=== PATIENT | female | born 1950 | race Caucasian/White ===

== ENCOUNTER 2021-04-20 08:46 | Day surgery (SDC) | payer MEDICARE, BC ==
[2021-04-15 15:39] LABS: BASOPHILS % (AUTO) 0.4 % (0-1); EOSINOPHILS % (AUTO) 0.1 % (0-6); HEMATOCRIT 30.9 % (35.0-45.0); HEMOGLOBIN 10.7 g/dl (12.0-16.0); LYMPHOCYTES # (AUTO) 0.8 X10'3 (1.1-4.8); LYMPHOCYTES % (AUTO) 17.3 % (21-51); MEAN CORPUSCULAR HEMOGLOBIN 38.3 PG (27.0-31.0); MEAN CORPUSCULAR HGB CONC 34.7 g/dL (33.0-36.5); MEAN CORPUSCULAR VOLUME 110.5 FL (78-98); MEAN PLATELET VOLUME 7.6 FL (7.4-10.4); MONOCYTES # (AUTO) 0.4 X10'3 (0-0.9); NEUTROPHILS # (AUTO) 3.2 X10'3 (1.8-7.7); NEUTROPHILS % (AUTO) 72.2 % (42-75); PLATELET COUNT 59 X10'3 (140-440); RED CELL DISTRIBUTION WIDTH 15.9 % (11.5-14.5); WHITE BLOOD COUNT 4.4 X10'3 (4.5-11.0)
[2021-04-15 15:52] LABS: PARTIAL THROMBOPLASTIN TIME 23 SECONDS (22-32)
[2021-04-15 15:59] LABS: ALANINE AMINOTRANSFERASE 30 U/L (12-78); ALBUMIN 4.6 G/DL (3.4-5.0); ALBUMIN/GLOBULIN RATIO 1.8 (1.1-1.5); ALKALINE PHOSPHATASE 84 IU/L (46-116); ANION GAP 7 (8-16); ASPARTATE AMINO TRANSFERASE 20 U/L (10-37); BILIRUBIN,TOTAL 0.8 MG/DL (0.1-1.0); BLOOD UREA NITROGEN 12 MG/DL (7-18); CALCIUM 9.1 MG/DL (8.5-10.1); CHLORIDE 105 MMOL/L (99-107); CREATININE 0.75 MG/DL (0.40-0.90); GLUCOSE 95 MG/DL (70-104); POTASSIUM 3.8 MMOL/L (3.5-5.1); SODIUM 143 MMOL/L (135-145); TOTAL CARBON DIOXIDE 31.5 MMOL/L (24-32); TOTAL PROTEIN 7.1 G/DL (6.4-8.2); eGFR 76 ML/MIN
[2021-04-15 16:10] LABS: ANISOCYTOSIS 1+; ELLIPTOCYTES 1+; PLATELET ESTIMATE DECREASED; POLYCHROMASIA 1+
[2021-04-15 16:11] LABS: HYPOCHROMASIA 1+; TEAR DROP CELLS 1+
[~2021-04-20] VITALS: Ht 172.7 cm; Wt 74.7 kg
[2021-04-20] VITALS (11 sets, daily range): BP systolic 121–158; BP diastolic 41–62
[2021-04-20] MEDS ORDERED: FLUT1BLS11 PO (09:08)
[2021-04-20] MEDS ORDERED: PARO10TA4 PO (09:08)
[2021-04-20] MEDS ORDERED: nitroGLYCERIN 0.4mg SUBLingual tab SL PRN (09:10)
[2021-04-20] MEDS ORDERED: normal saline 1,000 ML IV SCH (09:10)
[2021-04-20] MEDS ORDERED: diphenhydrAMINE 25mg capsule PO PRN (09:10)
[2021-04-20] MEDS ORDERED: LORazepam 0.5 MG tablet PO PRN (09:10)
[2021-04-20] MEDS ORDERED: MULTIVITAMIN PO (09:14)
[2021-04-20] MEDS ORDERED: HAIR SKIN AND NAILS (09:14)
[2021-04-20] MEDS ORDERED: VITAMIN C (09:14)
[2021-04-20] MEDS ORDERED: FOLIC ACID PO (09:14)
[2021-04-20] MEDS ORDERED: CALCIUM (09:14)
[2021-04-20] MEDS ORDERED: IRON (09:14)
[2021-04-20] MEDS ORDERED: ASPI-1265 PO (09:14)
[2021-04-20] MEDS ORDERED: VITAMIN D3 (09:14)
[2021-04-20] MEDS ORDERED: FISH OIL (09:14)
[2021-04-20] MEDS ORDERED: STOOL SOFTENER (09:14)
[2021-04-20] MEDS ORDERED: heparin 1,000 UNITS/NS 500ml 500 ML ONE ×2 (10:26→10:27)
[2021-04-20] MEDS ORDERED: midazolam 1 mg/ML 2ml injection ONE (10:26)
[2021-04-20] MEDS ORDERED: fentaNYL/PF 50MCG/1 ML 2ML syringe ONE (10:26)
[2021-04-20] MEDS ORDERED: iohexol 350MG/ML 100ml bottle IV ONE ×2 (10:26→11:20)
[2021-04-20] MEDS ORDERED: iohexol 350 MG/ML 50ML vial IV ONE ×2 (10:26→11:26)
[2021-04-20] MEDS ORDERED: LIDOcaine 1% (10mg/ml)w/preservative injection 20ml MDV ONE (10:26)
[2021-04-20] MEDS ORDERED: heparin 1,000unit/ml 10ml vial 10 ML ONE (10:27)
[2021-04-20] MEDS ORDERED: ondansetron/PF 4mg/2ml inj IV PRN (12:40)
[2021-04-20] MEDS ORDERED: normal saline 1000ml 1,000 ML IV SCH (12:40)
[2021-04-20] MEDS ORDERED: OXAZEpam 15mg capsule PO PRN (12:40)
[2021-04-20] MEDS ORDERED: proCHLORperazine 10 MG/2 ml inj IV PRN (12:40)
[2021-04-20] MEDS ORDERED: HYDROcodone/acetaminophen 5mg/325mg tablet PO PRN (12:40)
[2021-04-20] MEDS ORDERED: HYDROcodone/acetaminophen 10/325mg tab PO PRN (12:40)
[2021-04-20] MEDS ORDERED: acetaminophen 325mg tablet PO PRN (12:40)
== END 2021-04-20 18:00 | disposition home or self-care (01) ==
LOC: SSTAY O 08:46
PROVIDERS: ATTEND Internal Medicine Cardiovascular Disease
DX: R94.39 Abnormal result of other cardiovascular function study (principal); I25.119 Atherosclerotic heart disease of native coronary artery with unspecified angina pectoris; I35.1 Nonrheumatic aortic (valve) insufficiency; J44.9 Chronic obstructive pulmonary disease, unspecified; I48.0 Paroxysmal atrial fibrillation; I47.1 Supraventricular tachycardia; M19.90 Unspecified osteoarthritis, unspecified site; E78.5 Hyperlipidemia, unspecified; G62.9 Polyneuropathy, unspecified; Z88.8 Allergy status to other drugs, medicaments and biological substances; Z88.0 Allergy status to penicillin; Z98.890 Other specified postprocedural states; Z79.01 Long term (current) use of anticoagulants; Z85.6 Personal history of leukemia; Z87.891 Personal history of nicotine dependence; Z79.899 Other long term (current) drug therapy
CPT/HCPCS: 36415; 71046; 80053; 85025; 85610; 85730; 93005; 93458; 93567; 99152; 99153; C1760; C1769; J1644; J2001; J2250; J3010; J7030; Q0163; Q9967; 85008; A4620; A6258